=== PATIENT | female | born 1960 | race Caucasian/White ===

== ENCOUNTER 2018-04-22 08:00 | Inpatient (IN) | payer OTHER ==
--- NOTE | 2018-04-22 07:26 | HP ---
Admitting History and Physical - Admission Chief Complaint: right hip osteoarthritis x years History of Present Illness: 58-year-old female presents in regard to his right hip. Long-standing history of right hip osteoarthritis. Patient complains of pain, and range of motion, difficulty with activities of daily living, and difficulty ambulating. Patient has failed conservative treatment options including PO medications, activity modification, injections, and exercise programs. At this point, patient would like to proceed with surgical intervention-right total hip arthroplasty MAKOplasty. - Past Medical History ...: No Musculoskeletal: Yes: Osteoarthritis - Past Surgical History Additional Past Surgical History: see written history and physical. - Smoking History Smoking history: Current some day smoker Have you smoked in the past 12 months: Yes - Alcohol/Substance Use Hx Alcohol Use: Yes (SOCIALLY) Home Medications - Allergies Allergies/Adverse Reactions: Allergies Allergy/AdvReac Type Severity Reaction Status Date / Time Penicillins Allergy Severe Rash Verified 04/11/18 11:39 - Home Medications Home Medications: Ambulatory Orders Ergocalciferol (Vitamin D2) [Vitamin D2] 50,000 unit PO WEEKLY 04/11/18 Naproxen [Naprosyn] 500 mg PO ASDIR PRN 04/11/18 Review of Systems - Review of Systems Musculoskeletal: reports: Decreased ROM (right hip), Joint Pain (right hop) Physical Examination Constitutional: Yes: Well Nourished, No Distress Eyes: Yes: Conjunctiva Clear HENT: Yes: Atraumatic Neck: Yes: Supple Cardiovascular: Yes: Regular Rate and Rhythm Respiratory: Yes: Regular Gastrointestinal: Yes: Soft ...Rectal Exam: Yes: Deferred Musculoskeletal: Yes: Joint Stiffness (right hip) Assessment/Plan 58-year-old female presents in regard to his right hip. Long-standing history of right hip osteoarthritis. Patient complains of pain, and range of motion, difficulty with activities of daily living, and difficulty ambulating. Patient has failed conservative treatment options including PO medications, activity modification, injections, and exercise programs. At this point, patient would like to proceed with surgical intervention-right total hip arthroplasty MAKOplasty. Pros, cons, risks, and benefits of a right total hip arthroplasty MAKOplasty were discussed with the patient at length. Patient confirms her understanding, and consent to proceed with a right total hip arthroplasty to MAKOplasty.
[~2018-04-22 08:00] MED LIST: CEFAZOLIN 2 GM/D5W 2 GM/50 ML ML IVPB ONE; CELECOXIB 200 MG CAPSULE PO ONE; GABAPENTIN 300 MG CAPSULE (FP) PO ONE; PANTOPRAZOLE 40 MG TABLET (FP) PO ONE; ROPIVICAINE 0.2%/MORPH PF/KETOROLAC - 51ML DISP.SYRINGE IA ONE; TRANEXAMIC ACID 1000 MG/10 ML VIAL IVPUSH ONE; oxyCODONE HCL 10 MG SUSTAINED ACTING TABLET PO ONE
[2018-04-22] MEDS ORDERED: PANTOPRAZOLE 40 MG TABLET (FP) ONE (09:09)
[2018-04-22] MEDS ORDERED: oxyCODONE HCL 10 MG SUSTAINED ACTING TABLET ONE (09:09)
[2018-04-22] MEDS ORDERED: GABAPENTIN 300 MG CAPSULE (FP) ONE (09:10)
[2018-04-22] MEDS ORDERED: CELECOXIB 200 MG CAPSULE ONE (09:10)
[2018-04-22] MEDS ORDERED: oxyCODONE HCL 5 MG TABLET PO PRN ×2 (09:34→14:52)
[2018-04-22] MEDS ORDERED: ONDANSETRON 4 MG/2 ML VIAL IVPUSH PRN ×2 (09:34→16:45)
[2018-04-22] MEDS ORDERED: LACTATED RINGERS SOLUTION 1,000 ML IV SCH ×2 (09:45→16:45)
[2018-04-22 10:14] VITALS: BMI 36.3
[2018-04-22] MEDS ORDERED: DEXAMETHASONE SOD PHOSPHATE/PF 10 MG/ML SDV ONE (10:59)
[2018-04-22] MEDS ORDERED: BUPIVACAINE HCL/PF (5 MG/ML) 30 ML VIAL IJ ONE (10:59)
[2018-04-22] MEDS ORDERED: MIDAZOLAM HCL 2 MG/2 ML SINGLE DOSE VIAL ONE ×2 (10:59→12:23)
[2018-04-22] MEDS ORDERED: ceFAZolin SODIUM 1 GM VIAL ONE (12:05)
[2018-04-22] MEDS ORDERED: TRANEXAMIC ACID 1000 MG/10 ML VIAL ONE (12:05)
[2018-04-22] MEDS ORDERED: VANCOMYCIN 1,000 MG VIAL (RESTRICTED TO ID ONLY) ONE (12:06)
[2018-04-22] MEDS ORDERED: DEXMEDETOMIDINE HCL 200 MCG/2 ML IVPB ONE (12:20)
[2018-04-22] MEDS ORDERED: ACETAMINOPHEN 325 MG TABLET (FP) PO SCH (15:00)
[2018-04-22] MEDS ORDERED: ROPIVICAINE 0.2%/MORPH PF/KETOROLAC - 51ML DISP.SYRINGE IA ONE (15:52)
[2018-04-22] MEDS: KETOROLAC TROMETHAMINE 30 MG/1 ML VIAL IVPUSH SCH ×2 (16:35→21:56)
[2018-04-22] MEDS ORDERED: KETOROLAC TROMETHAMINE 30 MG/1 ML VIAL ONE (16:38)
[2018-04-22] MEDS ORDERED: traMADol HCL 50 MG TABLET ONE (16:38)
[2018-04-22] MEDS ORDERED: ACETAMINOPHEN INJECTION 100 ML IVPB ONE (16:38)
[2018-04-22] MEDS ORDERED: ACETAMINOPHEN 1000 MG/100 ML VIAL (NON FORMULARY) IVPB ONE ×2 (16:40→17:00)
[2018-04-22] MEDS ORDERED: MAG HYDROX/AL HYDROX/SIMETH 30 ML UNIT-DOSE CUP PO PRN (16:45)
[2018-04-22] MEDS: traMADol HCL 50 MG TABLET PO SCH (16:45)
[2018-04-22] MEDS ORDERED: MAGNESIUM HYDROX 2400MG/30ML ORAL SUSPENSION 30 ML CUP PO PRN (16:45)
--- NOTE | 2018-04-22 17:27 | OP ---
Operative Note - Note: Operative Date: 04/22/18 Pre-Operative Diagnosis: Right hip OA Operation: Right REMINGTON CARA Post-Operative Diagnosis: Same as Pre-op Surgeon: Alex Payan Labor/Excavator: Zaida Stapleton Anesthesia: Spinal Estimated Blood Loss (mls): 200
[2018-04-22] MEDS: CEFAZOLIN 2 GM/D5W 2 GM/50 ML ML IVPB SCH (20:13)
[2018-04-22] MEDS: GABAPENTIN 300 MG CAPSULE (FP) PO SCH (21:57)
[2018-04-22] MEDS: CELECOXIB 200 MG CAPSULE PO SCH (21:57)
[2018-04-22] MEDS: SENNOSIDES/DOCUSATE COMBO (SENNA PLUS) TABLET (UD) PO SCH (21:57)
[2018-04-22] MEDS: ASCORBIC ACID 500 MG TABLET (FP) PO SCH (21:57)
[2018-04-22] MEDS: ACETAMINOPHEN 325 MG TABLET (FP) PO SCH (22:13)
[2018-04-23] MEDS ORDERED: DEXAMETHASONE SOD PHOSPHATE 10 MG/1 ML VIAL IVPB ONE
[2018-04-23] MEDS: traMADol HCL 50 MG TABLET PO SCH ×4 (00:51→17:18)
[2018-04-23] MEDS: CEFAZOLIN 2 GM/D5W 2 GM/50 ML ML IVPB SCH (02:56)
[2018-04-23] MEDS: KETOROLAC TROMETHAMINE 30 MG/1 ML VIAL IVPUSH SCH ×2 (02:59→08:44)
[2018-04-23] MEDS: ACETAMINOPHEN 325 MG TABLET (FP) PO SCH ×4 (06:23→22:19)
[2018-04-23 07:42] LABS: HEMATOCRIT 36.1 % (32.4-45.2); HEMOGLOBIN 11.6 GM/dl (10.7-15.3); MCH 27.3 pg (25.7-33.7); MCHC 32.3 g/dl (32.0-36.0); MEAN CELL VOLUME 84.4 fl (80-96); MEAN PLT VOLUME 8.3 fl (7.5-11.1); RBC 4.27 M/mm3 (3.60-5.2); RDW 13.3 % (11.6-15.6); WHITE BLOOD COUNT 13.4 K/mm3 (4.0-10.8)
[2018-04-23 08:12] LABS: ANION GAP 9 MMOL/L (8-16); BLOOD UREA NITROGEN 19 mg/dl (7-18); CALCIUM 8.7 mg/dl (8.4-10.2); CHLORIDE 102 mmol/L (98-107); CO2 25 mmol/L (22-28); CREATININE 0.8 mg/dl (0.6-1.3); GLUCOSE,RANDOM 151 mg/dl (74-106); POTASSIUM 4.5 mmol/L (3.5-5.1); SODIUM 136 mmol/L (136-145)
[2018-04-23 08:19] LABS: PLATELET COUNT 337 K/MM3 (134-434)
--- NOTE | 2018-04-23 08:30 | SPEC ---
DATE OF OPERATION: 04/22/2018 PREOPERATIVE DIAGNOSIS: Right hip osteoarthritis. POSTOPERATIVE DIAGNOSIS: Right hip osteoarthritis. PROCEDURE: Right total hip replacement with MAKOplasty robotic navigation. ATTENDING: Juan J Martinez MD RADIAGRAPH OPERATOR: MADAY Cole ANESTHESIA: Spinal plus sedation. ESTIMATED BLOOD LOSS: 200 mL. COMPLICATIONS: None. DISPOSITION: The patient was transferred to the PACU in stable condition. IMPLANTS USED: Hannah Accolade II size 7 femoral component, Hannah Tritanium 52-mm acetabular component with 25-mm screws, MDM bipolar head ball and liner with inner 28 +8-mm offset head ball. INDICATIONS: This is a 58-year-old female who presented to the office complaining of severe right hip pain. She was seen and examined by Dr. Martinez and diagnosed with severe right hip osteoarthritis. The patient was initially treated nonoperatively with antiinflammatory medications but continued to have severe right hip pain and ambulatory dysfunction. Radiographs of the right hip showed signs of a dysplastic hip with severe deformity of the femoral head and [id number] reticulation. Because of the severe arthritic pain and the likelihood that it would get worse the patient elected to proceed with a right total hip replacement with MAKOplasty robotic navigation. The risks, benefits and alternatives to the procedure were explained to the patient in great detail and she elected to proceed with the surgery. On the day of surgery, the patient was taken to the operating room and placed on the OR table. Spinal anesthesia was administered by the anesthesiologist. The patient was then positioned in the lateral decubitus position on the table and all bony prominences were padded. An axillary roll was placed. The operative hip was then prepped and draped in the usual sterile fashion and intravenous antibiotics were given for infection prophylaxis. A surgical timeout was then performed with the team, and the patients identity, procedure, side, availability of implants, and the administration of antibiotics were confirmed. An approximately 15-cm longitudinal incision was made through the skin centered on the greater trochanter of the hip. This dissection was carried down through the subcutaneous tissues to the deep fascia. This fascia was then incised and a Cobra was placed around the inferior femoral neck. Electrocautery was used to reflect the anterior 40% of the gluteus medius and minimus starting at the musculotendinous junction and leaving a cuff for closure. This was reflected to reveal the capsule of the hip joint. An anterior capsulectomy was performed and the femoral head and neck were visualized. Grade 4 changes were noted diffusely throughout the joint. At this point, 3 small stab incisions were made superior to the main incision along the iliac crest. Three self-drilling Steinmann pins were then placed and the DigitalPost Interactive pelvic array was attached. Reference points on the limb were then entered into the robotic device and the limb length deficiency, offset, and femoral neck resection level were then calculated by the software. The hip was then dislocated with traction and external rotation. An oscillating saw was used to make the femoral neck cut at the level previously templated, and the femoral head was removed. Attention was then turned to the acetabulum. Retractors were then placed around the acetabulum and the labrum was removed. An acetabular checkpoint pin and the DigitalPost Interactive software were used to register the contours of the acetabulum. The acetabulum was then reamed in a single stage to the preoperatively templated size using the DigitalPost Interactive robotic arm. The appropriately sized cup was then impacted and had solid fixation as well as the preset inclination and version of 40 and 20 degrees, respectively. A polyethylene liner was then placed in the cup. Attention was then turned back to the femur, which was externally rotated for improved visualization. A femoral neck elevator was used to present the femoral neck cut, a box osteotome was used to enter the femoral canal, and a canal finder was used to go down the femoral shaft. The REMINGTON broaches were used sequentially until the optimal scratch fit was achieved. This correlated with the preoperatively templated size. From here, several different offset head and neck configurations were tested until excellent stability and length were obtained. These measurements were quantified using the DigitalPost Interactive software. All trial components were then removed, the femur was copiously irrigated, and the final components were placed. Leg length and stability were checked again and found to be excellent. Irrigation was performed again. Wound closure was started by repairing the abductor muscles with a No. 2 FiberWire stitch in a Krackow configuration passed through bone tunnels in the greater trochanter and tied over a bony bridge. This repair was then reinforced with a 0 V-Loc 180 barbed suture. Next, No. 1 Polysorb and 0 V-Loc 180 were used to close the fascia. The deep subcutaneous tissue was closed with No. 1 Polysorb sutures, and 2-0 Polysorb was used for the superficial subcutaneous tissue. The skin was closed using both 3-0 V-Loc 90 suture in a running subcuticular fashion and SwiftSet skin adhesive. The REMINGTON array and pins were removed from the iliac crest and the stab incision sites were irrigated and closed with 4-0 Polysorb sutures and SwiftSet skin adhesive. Once this was completed, a sterile dressing was applied. The patient was then awakened and taken to the PACU in stable condition. ADDENDUM: After final implants were placed a 3-minute dilute Betadine lavage was performed. Following this the wound was again thoroughly irrigated with normal saline and wound closure was begun. JUAN J MARTINEZ M.D. [id number]
[2018-04-23] MEDS: ASPIRIN 325 MG TABLET PO SCH (08:37)
[2018-04-23] MEDS: MULTIVITAMINS (DAILY MVI) TABLET (FP) PO SCH (09:19)
[2018-04-23] MEDS: PANTOPRAZOLE 40 MG TABLET (FP) PO SCH (09:19)
[2018-04-23] MEDS: ASCORBIC ACID 500 MG TABLET (FP) PO SCH ×2 (09:19→22:20)
[2018-04-23] MEDS: SENNOSIDES/DOCUSATE COMBO (SENNA PLUS) TABLET (UD) PO SCH ×2 (09:19→22:21)
[2018-04-23] MEDS: GABAPENTIN 300 MG CAPSULE (FP) PO SCH ×2 (09:19→22:20)
[2018-04-23] MEDS: CELECOXIB 200 MG CAPSULE PO SCH ×2 (09:19→22:20)
--- NOTE | 2018-04-23 10:24 | PN ---
Progress Note (short form) - Note Progress Note: 58F POD1 s/p R THR under spinal anesthetic with peripheral nerve block. Pt states that pain is well controlled and reports no anesthetic complications. AVSS. Motor and sensory exam intact in bilateral lower extremities. Continue current regimen.
--- NOTE | 2018-04-24 03:34 | PN ---
Progress Note (short form) - Note Progress Note: Pt seen and examined. Doing well. AVSS Selected Entries 04/23/18 22:00 Temperature 97.7 F Pulse Rate 94 H Respiratory 17 Rate Blood Pressure 114/65 O2 Sat by Pulse 95 Oximetry (%) Laboratory Tests 04/23/18 04/23/18 07:10 07:10 WBC 13.4 H Hgb 11.6 Hct 36.1 Plt Count 337 Sodium 136 Potassium 4.5 Chloride 102 Carbon Dioxide 25 Anion Gap 9 BUN 19 H Creatinine 0.8 Creat Clearance w eGFR > 60 Random Glucose 151 H Calcium 8.7 Gen: NAD RLE: c/d/i, NVID A/P POD#1 s/p R CARA PT/OOB D/C home in AM
--- NOTE | 2018-04-24 03:54 | DS ---
Physical Examination Vital Signs: Vital Signs Temperature 97.7 F 04/23/18 22:00 Pulse Rate 94 H 04/23/18 22:00 Respiratory Rate 17 04/23/18 22:00 Blood Pressure 114/65 04/23/18 22:00 O2 Sat by Pulse Oximetry (%) 95 04/23/18 22:00 Labs: CBC, BMP 04/23/18 07:10 04/23/18 07:10 Discharge Summary Reason For Visit: OSTEOARTHRITIS RIGHT HIP Current Active Problems Osteoarthritis of right hip (Acute) Procedures: Principal: right yue Hospital Course: Admitted for elective surgery. Procedure performed without complications. Pt received postoperative antibiotic prophylaxis and DVT ppx. Ambulated with physical therapy. Stable for discharge home with outpatient followup. Condition: Stable - Instructions Diet, Activity, Other Instructions: Dr Payan - Hip Replacement Instructions Keep the Aquacel dressing on until removed by Dr. Payan in 10-14 days - it is antibacterial and waterproof and you can shower with it on. Call the office for a follow-up appointment with Dr. Payan in 10-14 days. [phone] Take one Aspirin 325mg daily for 6 weeks to prevent blood clots in your legs. Take one Pantoprazole 40mg daily for 6 weeks to protect against heartburn and ulcers. Take Cephalexin (antibiotic) 3x/day for 10 days to help prevent skin infection. Take Celebrex 200mg twice daily for 30 days to reduce swelling and inflammation. Take a multivitamin, stool softener and extra Vitamin C supplement daily. For pain: *Mild pain (1-3/10): Take 1 Tramadol tablet every 4 hours as needed. Moderate pain (4-6/10): Take 1 Tramadol tablet and 1 Percocet tablet every 4 hours as needed. Severe pain (7-10/10): Take 1 Tramadol tablet and 2 Percocet tablets every 4 hours as needed. Activity: You can put as much weight on the operative leg as you want. For the first 6 weeks, all you need to do is walk around the house, go up/down stairs, and sit down/get up. Avoid externally rotating your leg (turning it clockwise) past the 2 o'clock point. After 6 weeks when everything is healed (and bone has grown into the implant) you will be sent for more intensive outpatient physical therapy and will have no activity restrictions at all. You will likely have a limp after surgery which may take several months to a year to go away. The stronger your hip abductor and rotator muscles were before the surgery the shorter the duration of the limp. If your hip was very stiff before surgery, your abductor and rotator muscles will be very weak from disuse and it will take longer for them to become strong enough to stabilize the hip; this will cause you to limp. Studies show that at one year postoperatively nearly 100% of patients are able to walk without a limp. Exercises to strengthen these muscles can speed up the recovery significantly, but only work if you are motivated and do them regularly! Always use a walker or cane for balance and to prevent falls. Expect to see swelling / bruising from the operative site all the way down to your toes. Wear the Compression stocking on the operative side during the day to minimize how much swelling there is in your foot/ankle. Don't wear the stocking at night. You don't have to wear the stocking on the other side. Disposition: VNS/HOME HEALTH CARE - Home Medications Comprehensive Discharge Medication List: Ambulatory Orders Ergocalciferol (Vitamin D2) [Vitamin D2] 50,000 unit PO WEEKLY 04/11/18 Ascorbic Acid [Vitamin C -] 500 mg PO BID tablet 04/24/18 Aspirin [ASA -] 325 mg PO DAILY@0800 tablet 04/24/18 Celecoxib [CeleBREX -] 200 mg PO BID #60 capsule 04/24/18 Cephalexin Monohydrate [Keflex -] 500 mg PO TID #30 capsule 04/24/18 Multivitamins [Multivit ([facility] Formulary)] 1 tab PO DAILY tab 04/24/18 Oxycodone HCl/Acetaminophen [Percocet 5-325 mg Tablet] 1 - 2 tab PO Q4H PRN #60 tablet MDD 10 04/24/18 Pantoprazole Sodium [Protonix -] 40 mg PO DAILY #40 tablet.ec 04/24/18 Sennosides/Docusate Sodium [Pericolace -] 1 tablet PO BID tablet 04/24/18 traMADol HCL [Ultram -] 50 mg PO Q4H PRN #42 tablet MDD 6 04/24/18
[2018-04-24] MEDS: traMADol HCL 50 MG TABLET PO SCH ×3 (04:08→12:52)
[2018-04-24] MEDS: ACETAMINOPHEN 325 MG TABLET (FP) PO SCH ×2 (05:00→11:00)
[2018-04-24 07:59] LABS: HEMATOCRIT 32.2 % (32.4-45.2); HEMOGLOBIN 10.4 GM/dl (10.7-15.3); MCH 27.2 pg (25.7-33.7); MCHC 32.3 g/dl (32.0-36.0); MEAN CELL VOLUME 84.2 fl (80-96); MEAN PLT VOLUME 8.5 fl (7.5-11.1); PLATELET COUNT 346 K/MM3 (134-434); RBC 3.82 M/mm3 (3.60-5.2); RDW 13.2 % (11.6-15.6); WHITE BLOOD COUNT 8.7 K/mm3 (4.0-10.8)
[2018-04-24 08:13] LABS: ANION GAP 5 MMOL/L (8-16); BLOOD UREA NITROGEN 32 mg/dl (7-18); CALCIUM 8.3 mg/dl (8.4-10.2); CHLORIDE 103 mmol/L (98-107); CO2 26 mmol/L (22-28); CREATININE 1.1 mg/dl (0.6-1.3); GLUCOSE,RANDOM 107 mg/dl (74-106); SODIUM 134 mmol/L (136-145)
[2018-04-24 12:28] VITALS: BP 111/60; PULSE 81; TEMP 97.9
[2018-04-24] MEDS: SENNOSIDES/DOCUSATE COMBO (SENNA PLUS) TABLET (UD) PO SCH (12:35)
[2018-04-24] MEDS: ASCORBIC ACID 500 MG TABLET (FP) PO SCH (12:35)
[2018-04-24] MEDS: ASPIRIN 325 MG TABLET PO SCH (12:35)
[2018-04-24] MEDS: CELECOXIB 200 MG CAPSULE PO SCH (12:36)
[2018-04-24] MEDS: GABAPENTIN 300 MG CAPSULE (FP) PO SCH (12:36)
[2018-04-24] MEDS: MULTIVITAMINS (DAILY MVI) TABLET (FP) PO SCH (12:36)
[2018-04-24] MEDS: PANTOPRAZOLE 40 MG TABLET (FP) PO SCH (12:37)
--- NOTE | 2018-05-10 09:05 | PN ---
Progress Note (short form) - Note Progress Note: Pt has BMI 36.3 Obesity added to problem list.
--- NOTE | 2018-05-14 11:33 | PATH ---
Surgical Pathology Report Patient Name: SANJEEV TORRES Med. Rec. #: [id number] /Age/Gender: 1960 (Age: 58) / F Account: [id number] Location: [facility] Taken: 04/22/2018 Received: 04/22/2018 Reported: 05/14/2018 Physicians: Alex Payan M.D. Specimen(s) Received RIGHT FEMORAL HEAD Clinical History Osteoarthritis right hip Final Diagnosis FEMORAL HEAD, RIGHT, TOTAL HIP REPLACEMENT: DEGENERATIVE JOINT DISEASE. Electronically Signed Mery Le M.D. Gross Description Received in formalin, labeled "right femoral head," is a 5.0 x 5.0 x 4.1 cm. femoral head with a 0.8 cm in length portion of femoral neck attached. The margin of resection is smooth. There is a 3.7 cm in greatest dimension area of eburnation present. The remaining articular surface is hay-yellow and diffusely granular and nodular. The underlying trabecular bone is yellow and hard. A home furnishings sales representative section is submitted in one cassette, following decalcification. /04/24/2018 [facility]04/24/2018
== END 2018-04-24 14:35 | disposition home health service (06) | DRG 301 ==
LOC: FM/S 08:52
PROVIDERS: ADMIT Student in an Organized Health Care Education/Training Program; ATTEND Student in an Organized Health Care Education/Training Program
PROC: 8E0W0CZ Robotic Assisted Procedure of Trunk Region, Open Approach (ICD-10-PCS; 2018-04-22)
PROC: 0SR90JA Replacement of Right Hip Joint with Synthetic Substitute, Uncemented, Open Approach (ICD-10-PCS; principal; 2018-04-22 13:33)
DX: M16.11 Unilateral primary osteoarthritis, right hip (principal); Z88.0 Allergy status to penicillin; F17.210 Nicotine dependence, cigarettes, uncomplicated; M24.551 Contracture, right hip; E66.9 Obesity, unspecified; Z68.36 Body mass index [BMI] 36.0-36.9, adult
CPT/HCPCS: 36415; 73502-TC-RT; 80048; 85027; 88304-TC; 88311-TC; 94760; 97116-GP; 97162-GP; J0131; J1100